=== PATIENT | female | born 1960 | race Caucasian/White ===

== ENCOUNTER 2023-11-11 09:33 | Outpatient (CLI) | payer MEDICARE, SELFPAY ==
--- NOTE | 2023-11-11 09:20 | MM_ITS ---
WS: [id number] SCREENING DIGITAL BREAST TOMOSYNTHESIS MAMMOGRAM WITH CAD HISTORY: SCREENING COMPARISON: None available. Bilateral CC and MLO with tomosynthesis and synthetic mammography submitted. Computer aided detection analyzed. Breast composition: There are scattered areas of fibroglandular density. Several ill-defined calcific ations in a linear distribution in the upper outer quadrant of the RIGHT breast at a middle to assistant engineer ior depth. There is an additional benign calcification. There are a few scattered benign calcificatio ns in the LEFT breast. No mass or distortion. MM/MM [facility] tomosynthesis [id number] IMPRESSION: BI-RADS: 0 - Incomplete: Need additional imaging evaluation. FOLLOW UP: Need Additional Imaging RIGHT BREAST: Magnification views of suspicious calcification CC and MLO. True ML.
== END 2023-11-11 09:34 | disposition home or self-care (01) ==
LOC: MOBLMAM 09:39
PROVIDERS: PCP Family Medicine; Visit Provider Family Medicine
DX: Z12.31 Encounter for screening mammogram for malignant neoplasm of breast (principal); R92.323 Mammographic fibroglandular density, bilateral breasts; N63.11 Unspecified lump in the right breast, upper outer quadrant; R92.1 Mammographic calcification found on diagnostic imaging of breast
CPT/HCPCS: 77063; 77067